=== PATIENT | female | born 1990 | race Caucasian/White ===

== ENCOUNTER → 2019-08-11 10:48 | Outpatient (BNVA) | payer OTHER, SELFPAY | PROVIDERS: Family Provider Family Medicine; PCP Family Medicine; Visit Provider Nurse Practitioner Family | DX: J02.9 Acute pharyngitis, unspecified (principal) | CPT/HCPCS: 87071; 87880 ==

== ENCOUNTER → 2020-02-21 10:42 | Outpatient (BNVA) | payer OTHER, SELFPAY | PROVIDERS: Family Provider Family Medicine; PCP Family Medicine; Visit Provider Family Medicine | DX: Z20.822 Contact with and (suspected) exposure to COVID-19 (principal) | CPT/HCPCS: 87635 ==

== ENCOUNTER 2020-02-23 02:02 | Emergency (ER) | payer OTHER, SELFPAY ==
[2020-02-23 02:08] VITALS: BP 149/95; PULSE 105; RESP 19; TEMP 36.8; O2SAT 98; BMI 49.2
[2020-02-23 02:11] VITALS: BP 153/103; PULSE 99; RESP 20; O2SAT 99
--- NOTE | 2020-02-23 02:26 | W.ED.COVID ---
HPI - COVID General: Chief Complaint: COVID symptoms Stated Complaint: Covid symptoms/waiting for covid results/COVID WR Time Seen by Provider: 02/23/20 02:14 Triage information: Has fever, cough or shortness of breath. Exposure to COVID + person last 14 days History of Present Illness: HPI Narrative: Patient is a 29-year-old female comes to the ED with upper respiratory symptoms. All her symptoms started on Tuesday. She has a productive cough with some clear sputum. She is also complaining of having a sore throat and nasal congestion. She has a headache as well. She says that she was tested for COVID-19 on , February 20 and it was negative. She comes to the ED tonight because her cough and sore throat have been progressing. She also feels like she is having some shortness of breath. Denies any fever, chills, chest pain, palpitations, abdominal pain, vomiting, bladder or bowel symptoms. Denies any history of blood clots or DVTs. COVID 19 common symptoms: positive productive cough, headache(s), throat pain, nasal congestion and nausea; negative fever(s), chills, non-productive cough, dyspnea, fatigue, vomiting or diarrhea COVID 19 other sytmptoms: negative chest pain COVID Results: Nasal/Oral Coronavirus 2019 PCR Not detected 02/21/20 10:42 02/21/20 Review of Systems Const: Denies: fever(s), chills or fatigue Eyes: Denies: change in vision or eye discomfort ENMT: Reports: throat pain, nasal discharge and nasal congestion; Denies: odynophagia Card: Denies: chest pain, palpitations, edema, swelling of feet/ankles, dyspnea on exertion or orthopnea Resp: Reports: productive cough and change in phlegm color (clear); Denies: dyspnea or non-productive cough GI: Reports: nausea; Denies: abdominal pain, vomiting, diarrhea, constipation or hematochezia : Denies: flank pain, dysuria or hematuria Musc: Denies: neck pain, back pain or extremity swelling Skin/Breast: Denies: rash or new lesions Neuro: Reports: headache(s); Denies: numbness in extremities or weakness in extremities PFS ED PFSH: Medical History Morbid obesity Surgical History History of section, low transverse (12/24/12) Performed by Dr. Garay at [facility] in [place], [place]. History of hysteroscopy (05/16/18) with IUD removal. Performed by Dr. Garay at [facility] in [place], [place]. History of myringotomy with tube placement Family History Father Hypertension Hypercholesteremia Mother Thyroid disease removed Social History Smoking and tobacco status: never smoked Alcohol intake: never Female Reproductive History: Date of last menstrual period: 02/09/20 Physical Exam Const: COMMON NORMALS: no acute distress, patient oriented x3 and alert GENERAL APPEARANCE: cooperative and comfortable NUTRITIONAL APPEARANCE: obese HENMT: COMMON NORMALS: normocephalic, EAC's normal and TM's normal bilaterally HEAD & SCALP: normocephalic EXTERNAL AUDITORY CANAL: EAC's normal TYMPANIC MEMBRANE: TM's normal bilaterally MOUTH: Normal oral and palatal mucosa present THROAT: uvula midline and posterior oropharynx abnormal erythema; no exudates Eye: COMMON NORMALS: Equal, round and reactive pupils present PUPIL: Yes Equal, round and reactive pupils present Neck/C-Spine: COMMON NORMALS: supple GENERAL: Yes normal visual inspection Resp: COMMON NORMALS: normal respiratory effort, No retractions, No use of accessory muscles and clear to auscultation bilaterally EFFORT & INSPECTION: Yes able to speak in complete sentences, No tachypneic, No respiratory distress and No labored AUSCULTATION: clear to auscultation bilaterally Cardio: COMMON NORMALS: regular rate, regular rhythm, S1 normal heart sound present, S2 normal heart sound present, No gallops present (Cardio), No clicks present (Cardio), No murmurs present (Cardio) and Peripheral pulses 2+ throughout RATE: regular rate RHYTHM: regular rhythm HEART SOUNDS: S1 normal heart sound present and S2 normal heart sound present PERIPHERAL PULSES: Peripheral pulses 2+ throughout GI: COMMON NORMALS: Normal to inspection, nondistended, normoactive bowel sounds present, Soft to palpation, non-tender and no masses PALPATION: Yes Soft to palpation : COMMON NORMALS: Yes no CVA tenderness BLADDER/KIDNEY EXAM: Yes no CVA tenderness Back/Pelvis: COMMON NORMALS: no CVA tenderness Extremity: COMMON NORMALS: normal to inspection and no pedal edema Neuro: COMMON NORMALS: patient oriented x3 and moves all extremities SENSORIUM/ORIENTATION: Yes alert Skin: GENERAL SKIN EXAM: dry skin Course Vital Signs: Vital signs: Vital Signs Temperature 98.2 F 02/23/20 02:08 Pulse Rate 99 02/23/20 02:11 Respiratory Rate 20 H 02/23/20 02:11 Blood Pressure 153/103 02/23/20 02:11 Pulse Oximetry 99 02/23/20 02:36 MDM - COVID MDM Narrative: Medical decision making narrative: Patient is a 29-year-old female comes to the ED with upper respiratory symptoms. She has a productive cough, sore throat, headache and nasal congestion. She was tested for COVID-19 on February 20 and it was negative. Physical exam was unremarkable and patient's lungs were clear to auscultation bilaterally. Strep negative. Chest x-ray showed no acute findings. Patient was diagnosed with bronchitis and upper respiratory viral pharyngitis. She was discharged with a prescription for azithromycin and Medrol Dosepak. Return to ED precautions given. Follow-up with PCP in 7 to 10 days for reevaluation. Patient understood and agree with plan. Lab Data: Attestation: I reviewed the patient's lab results. Labs: Lab Results 02/23/20 Range/Units 02:36 Group A Strep Rapi d Negative (Negative) Imaging Data: CXR: Attestation: I personally reviewed and interpreted this imaging study as follows: Radiologist's impression: [address] [address] XRay Report Signed Patient: Gisele Marrufo Unit #: [id number] : 1990 Age/Sex: 29 / F ADM Date: 02/23/20 Loc: ER Room/Bed: Attending Dr: Ordering Provider/Ordering MD: Chavez Barron Date of Service: 02/23/20 Procedure(s): XR chest 1V portable [id number] Accession Number(s): [id number] Report Number: [id number] PROCEDURE INFORMATION: Exam: XR Chest, 1 View Exam date and time: 02/23/2020 2:26 AM Age: 29 years old Clinical indication: Cough and shortness of breath; Patient HX: Cough with SOB. Negative covid test. TECHNIQUE: Imaging protocol: XR of the chest Views: 1 view. COMPARISON: No relevant prior studies available. FINDINGS: Lungs: Unremarkable. No consolidation. Pleural space: Unremarkable. No pleural effusion. No pneumothorax. Heart/Mediastinum: Unremarkable. No cardiomegaly. Bones/joints: Unremarkable. XR/XR chest 1V portable [id number] IMPRESSION: No acute findings. Dictated By: Kimberly Lozoya Signed By: Kimberly Lozoya Signed Date/Time: 02/23/20319 DD/ 8 COVID Results: Nasal/Oral Coronavirus 2019 PCR Not detected 02/21/20 10:42 02/21/20 Discharge Plan Discharge Patient Disposition: Home Clinical Impression: Bronchitis Upper respiratory infection Qualifiers: URI type: acute pharyngitis Pharyngitis/tonsillitis etiology: unspecified etiology Qualified Code(s): J02.9 - Acute pharyngitis, unspecified Condition: Stable Prescriptions: New azithromycin 250 mg tablet See Rx Instructions .ROUTE .COMPLEX Qty: 6 RF: 0 Medrol (Max) 4 mg tablets,dose pack See Rx Instructions .ROUTE .COMPLEX Qty: 21 RF: 0 No Action ferrous sulfate 325 mg (65 mg iron) tablet,delayed release (DR/EC) 325 mg PO BID RF: 0 etonogestrel-ethinyl estradiol [NuvaRing] 0.12-0.015 mg/24 hr ring 1 vag ring VAGINAL .COMPLEX Qty: 1 RF: 12 citalopram 20 mg tablet 20 mg PO DAILY Qty: 30 RF: 1 Discharge Orders: Discharge ED (Routine); Ordered 02/23/20 Ordered By: Chavez Barron Referrals: Chiquis Bess MD [Primary Care Provider] - Discharge Diet: Regular Discharge Activity: Resume usual activity Patient Instructions: Upper Respiratory Infection (ED), Acute Bronchitis (ED) Activity Restrictions/Additional Instructions: Follow-up with medical provider as directed in 7 to 10 days for reevaluation. Take medications as prescribed. Return to the ER or your medical provider if condition worsens. Please read and understand discharge instructions. If any questions, please ask. Coding Level of Care Code ED Paint Prep Technician for Chg Fwd Exam Comprehensive
[2020-02-23] MEDS: acetaminophen 500 mg Tablet 1000 MG PO (02:30)
[2020-02-23 02:36] VITALS: O2SAT 99
--- NOTE | 2020-02-23 03:15 | PC.NURSE ---
waiting for results.
[2020-02-23 03:21] LABS: Rapid Strep A Test Negative (Negative)
[2020-02-23 03:43] VITALS: BP 132/89; PULSE 87; RESP 21; O2SAT 99
--- NOTE | 2020-02-23 03:44 | PC.NURSE ---
Pt discharge home with prescription and discharge instructions
[2020-02-23 04:08] VITALS: BP 126/83; PULSE 97; RESP 20; O2SAT 98
== END 2020-02-23 04:09 | disposition home or self-care (01) ==
PROVIDERS: Emergency Provider Physician Assistant; PCP Family Medicine
DX: J40 Bronchitis, not specified as acute or chronic (principal); J02.9 Acute pharyngitis, unspecified
CPT/HCPCS: 12345; 71045; 87081; 87880; 96372; 99281; 99283; J2930

== ENCOUNTER → 2020-05-27 11:54 | Outpatient (BNVA) | payer OTHER, SELFPAY | PROVIDERS: PCP Family Medicine; Visit Provider Family Medicine | DX: Z20.822 Contact with and (suspected) exposure to COVID-19 (principal) | CPT/HCPCS: 87635 ==

== ENCOUNTER 2020-07-29 10:00 | Outpatient (CLI) | payer SELFPAY ==
[2020-07-29 10:58] LABS: HF Add Manual Diff No
[2020-07-29 11:08] LABS: Basophils # 0.1 10^3/uL (0.0-0.1); Basophils % 1.2 %; Eosinophils # 0.1 10^3/uL (0.0-0.8); Eosinophils % 1.4 %; Hematocrit 43.5 % (37.0-47.0); Hemoglobin 13.6 g/dL (11.5-15.3); Lymphocytes # 1.6 10^3/uL (0.8-4.8); Lymphocytes % 27.2 %; Mean Corpuscular HGB Conc 31.3 g/dL (30.0-36.0); Mean Corpuscular Hemoglobin 27.1 pg (28.0-34.0); Mean Corpuscular Volume 86.8 fL (81-99); Mean Platelet Volume 10.8 fL (7.4-10.4); Monocytes # 0.5 10^3/uL (0.2-0.9); Monocytes % 9.5 %; Neutrophils # 3.45 10^3/uL (1.8-7.7); Neutrophils % 60.5 %; Nucleated Red Blood Cells % 0 %; Platelet Count 393 10^3/cmm (130-400); Red Blood Count 5.01 10^6/uL (4.1-5.3); White Blood Count 5.7 10^3/uL (4.0-10.0)
[2020-07-29 11:42] LABS: Alanine Aminotransferase 33 U/L (0-33); Albumin Level 4.1 g/dL (3.5-5.2); Alkaline Phosphatase 78 IU/L (35-105); Anion Gap 13.8 (5-19); Aspartate Amino Transferase 22 U/L (0-32); Blood Urea Nitrogen 8 mg/dL (6-20); Carbon Dioxide 26 mmol/L (22-29); Chloride 104 mmol/L (98-107); Chol HDL Ratio 2.94 mg/dL (0.0-4.40); Cholesterol 156 mg/dL (0-200); Globulin 2.5 g/dL (1.3-4.6); Glomerular Filtration Rate 116.6 mL/min (90-130); Glucose 93 mg/dL (65-115); HDL Cholesterol 53 mg/dL (60-100); LDL Cholesterol Calculated 84 mg/dL (50-129); LDL HDL Ratio 1.58 RATIO (0.00-3.22); Osmolality Calculated 288 mOsm/kg (285-295); Potassium 3.8 mmol/L (3.5-5.1); Sodium 140 mmol/L (136-145); Thyroid Stimulating Hormone 0.74 uIU/mL (0.27-4.20); Total Bilirubin 0.3 mg/dL (0.15-1.2); Total Protein 6.6 g/dL (6.6-8.7); Triglycerides 93 mg/dL (0-150)
[2020-07-29 11:57] LABS: Estmated Average Glucose 103; Hemoglobin A1C 5.2 % (4.0-6.0)
[2020-07-29 12:17] LABS: 25 Hydroxy Vitamin D 45 ng/mL (30-100)
== END 2020-07-29 10:01 | disposition home or self-care (01) ==
PROVIDERS: PCP Family Medicine; Visit Provider Dermatology
DX: Z13.9 Encounter for screening, unspecified (principal)
CPT/HCPCS: 36415

== ENCOUNTER → 2020-08-08 09:07 | Outpatient (BNVA) | payer OTHER, SELFPAY | PROVIDERS: PCP Family Medicine; Visit Provider Obstetrics & Gynecology | DX: Z12.4 Encounter for screening for malignant neoplasm of cervix (principal); Z78.9 Other specified health status | CPT/HCPCS: 88175 ==

== ENCOUNTER → 2020-08-23 11:44 | Outpatient (BNVA) | payer OTHER, SELFPAY | PROVIDERS: PCP Family Medicine; Visit Provider Nurse Practitioner | DX: Z20.822 Contact with and (suspected) exposure to COVID-19 (principal) | CPT/HCPCS: 87635 ==

== ENCOUNTER 2020-08-29 21:30 | Emergency (ER) | payer OTHER, SELFPAY ==
[2020-08-29 21:51] VITALS: BP 102/69; PULSE 78; RESP 20; TEMP 37; O2SAT 98; BMI 51.6
--- NOTE | 2020-08-29 22:16 | ED_ITS ---
HPI - General Adult General: Chief complaint: General Medical Stated complaint: NOT ABLE TO GO TO URINATE/COVID + Time Seen by Provider: 08/29/20 22:05 Source: patient Mode of arrival: ambulatory Limitations: no limitations History of Present Illness: HPI narrative: 30-year-old female who diagnosed with Covid 1 week ago. States that she has been feeling better but today she st arted to have difficulty time urinating. States she has had some diarrhea and feels like she may be dehydrated. States she was the bathroom she is only able to urinate a little bit and feels like she is not urinating much. She denies any painful urination and denies any abdominal pain. She had no vomiting. Denies any worsening improving factors. Associated symptoms: Deny chest pain, dyspnea, headache(s), nausea, rash or vomiting Review of Systems Const: Denies: fever(s), chills, body aches or change in appetite Eyes: Denies: blurry vision or eye discomfort ENMT: Denies: throat pain or dental pain Card: Denies: chest pain Resp: Denies: dyspnea GI: Denies: abdominal pain, nausea, vomiting or diarrhea : Reports: difficulty voiding Musc: Denies: neck pain or back pain Skin/Breast: Denies: rash Neuro: Denies: headache(s) Psych: Denies: depression Diomedes/Lymph: Denies: easy bruising All/Imm: Denies: urticaria PFSH ED PFSH: Medical History (Updated 08/29/20 @ 23:53 by Karen Nielson MD) Morbid obesity Surgical History History of section, low transverse (12/24/12) Performed by Dr. Garay at [facility] in [place], [place]. History of hysteroscopy (05/16/18) with IUD removal. Performed by Dr. Garay at [facility] in [place], [place]. History of myringotomy with tube placement Family History Father Hypertension Hypercholesteremia Mother Thyroid disease removed Social History Smoking and tobacco status: never smoked Alcohol intake: never Female Reproductive History: Date of last menstrual period: 02/09/20 Physical Exam Const: COMMON NORMALS: no acute distress, patient oriented x3 and healthy appearing HENMT: COMMON NORMALS: normocephalic and atraumatic HEAD & SCALP: normocephalic and atraumatic Eye: COMMON NORMALS: Equal, round and reactive pupils present and EOMs intact bilaterally PUPIL: Yes Equal, round and reactive pupils present Neck/C-Spine: COMMON NORMALS: full ROM and supple Chest: COMMONS NORMALS: normal inspection of the chest and normal palpation of entire chest wall Resp: COMMON NORMALS: normal respiratory effort, No retractions, No use of accessory muscles and clear to auscultation bilaterally AUSCULTATION: clear to auscultation bilaterally Cardio: COMMON NORMALS: regular rate, regular rhythm and No murmurs present (Cardio) RATE: regular rate RHYTHM: regular rhythm GI: COMMON NORMALS: Normal to inspection, nondistended, normoactive bowel sounds present, Soft to palpation, non-tender and no masses PALPATION: Yes Soft to palpation Extremity: COMMON NORMALS: normal to inspection and full ROM Neuro: COMMON NORMALS: patient oriented x3, moves all extremities and no focal motor deficits Psych: COMMON NORMALS: mental status grossly normal, Normal thought process present and cooperative THOUGHT PROCESS: Normal thought process present Skin: COMMON NORMALS: no rashes or lesions noted and no wounds GENERAL SKIN EXAM: no rashes or lesions noted Course Vital Signs: Vital signs: Vital Signs Temperature 98.6 F 08/29/20 21:51 Pulse Rate 73 08/29/20 22:46 Respiratory Rate 18 08/29/20 22:46 Blood Pressure 129/86 08/29/20 22:46 Pulse Oximetry 98 08/29/20 22:46 MDM - General Adult MDM Narrative: Medical decision making narrative: Patient presents here with acute cystitis. She has no signs of kidney infection. Her blood work here is normal besides urinalysis. Patient prescribed Keflex and is stable for discharge. She is to follow-up with PCP and return if worsening. She understands agrees to plan. Lab Data: Labs: Lab Results 08/29/20 08/29/20 08/29/20 Range/Units 22:30 22:30 22:30 WBC 4.1 (4.0-10.0) 10^3/ uL RBC 5.47 H (4.1-5.3) 10^6/u L Hgb 15.2 (11.5-15.3) g/dL Hct 48.3 H (37.0-47.0) % MCV 88.3 (81-99) fL MCH 27.8 L (28.0-34.0) pg MCHC 31.5 (30.0-36.0) g/dL RDW 14.9 (12.1-15.1) % Plt Count 258 (130-400) 10^3/c mm MPV 11.3 H (7.4-10.4) fL Neut % (Auto) 38.2 % Lymph % (Auto) 47.8 % [place] % (Auto) 12.1 % Eos % (Auto) 0.7 % Baso % (Auto) 1.0 % Neut # (Auto) 1.55 L (1.8-7.7) 10^3/u L Lymph # (Auto) 1.9 (0.8-4.8) 10^3/u L [place] # (Auto) 0.5 (0.2-0.9) 10^3/u L Eos # (Auto) 0.0 (0.0-0.8) 10^3/u L Baso # (Auto) 0.0 (0.0-0.1) 10^3/u L Nucleated RBC % (a uto) 0 % Nucleated RBCs # 0.0 /100WBC Sodium 140 (136-145) mmol/L Potassium 3.7 (3.5-5.1) mmol/L Chloride 106 (98-107) mmol/L Carbon Dioxide 22 (22-29) mmol/L Anion Gap 15.7 (5-19) BUN 9 (6-20) mg/dL Creatinine 0.6 (0.5-0.9) mg/dL GFR Calculation 115.9 (90-130) mL/min Glucose 87 (65-115) mg/dL Calculated Osmolal ity 288 (285-295) mOsm/k g Calcium 8.6 (8.5-10.5) mg/dL Total Bilirubin 0.4 (0.15-1.2) mg/dL AST 23 (0-32) U/L ALT 55 H (0-33) U/L Alkaline Phosphata se 104 (35-105) IU/L Total Protein 6.8 (6.6-8.7) g/dL Albumin 4.1 (3.5-5.2) g/dL Globulin 2.7 (1.3-4.6) g/dL Urine Color Yellow (Yellow) Urine Appearance Hazy A (CLEAR) Urine pH 7 (5-7) Ur Specific Gravit y 1.010 (1.005-1.030) Urine Protein Trace (Negative) Urine Glucose (UA) Norm (Normal) Urine Ketones Negative (Negative) Urine Blood 3+ H (Negative) Urine Nitrate Positive H (Negative) Urine Bilirubin 1+ H (Negative) Urine Urobilinogen 4 H (Negative) mg/dL Ur Leukocyte Astrid ase 1+ H (Negative) Urine RBC 25-40 H (0-2) /hpf Urine WBC 15-25 H (0-5) /hpf Ur Squamous Epith Cells 0-4 H (0-5) /hpf Amorphous Sediment Not Reportable Urine Bacteria 4+ H (NONE) /hpf Discharge Plan Discharge Patient Disposition: Home Clinical Impression: Acute cystitis Qualifiers: Hematuria presence: without hematuria Qualified Code(s): N30.00 - Acute cystitis without hematuria Condition: Stable Prescriptions: New cephalexin 500 mg capsule 500 mg PO TID 7 Days Qty: 21 RF: 0 No Action ferrous sulfate 325 mg (65 mg iron) tablet,delayed release (DR/EC) 325 mg PO DAILY RF: 0 etonogestrel-ethinyl estradiol [NuvaRing] 0.12-0.015 mg/24 hr ring 1 vag ring VAGINAL .COMPLEX Qty: 3 RF: 6 hydrocodone-acetaminophen 10-325 mg tablet 1 tab PO DAILY PRN (Reason: pain) 30 Days Qty: 30 RF: 0 Discharge Orders: Discharge ED (Routine); Ordered 08/29/20 Ordered By: Karen Nielson Referrals: Chiquis Bess MD [Primary Care Provider] - 1-3 days Discharge Diet: Advance as tolerated Discharge Activity: Resume usual activity Patient Instructions: Urinary Tract Infection in Women (ED) Coding Level of Care Code ED Lift Operator for Chg Fwd Exam Comprehensive
[2020-08-29] MEDS: sodium chloride 0.9% 1,000 ML 999 ML IV ×2 (22:32→23:06)
[2020-08-29 22:46] VITALS: BP 129/86; PULSE 73; RESP 18; O2SAT 98
[2020-08-29 22:46] LABS: Eosinophils % 0.7 %; Hematocrit 48.3 % (37.0-47.0); Hemoglobin 15.2 g/dL (11.5-15.3); Lymphocytes # 1.9 10^3/uL (0.8-4.8); Lymphocytes % 47.8 %; Mean Corpuscular HGB Conc 31.5 g/dL (30.0-36.0); Mean Corpuscular Hemoglobin 27.8 pg (28.0-34.0); Mean Corpuscular Volume 88.3 fL (81-99); Mean Platelet Volume 11.3 fL (7.4-10.4); Monocytes # 0.5 10^3/uL (0.2-0.9); Monocytes % 12.1 %; Neutrophils # 1.55 10^3/uL (1.8-7.7); Neutrophils % 38.2 %; Nucleated Red Blood Cells % 0 %; Platelet Count 258 10^3/cmm (130-400); Red Blood Count 5.47 10^6/uL (4.1-5.3); Red Cell Distribution Width 14.9 % (12.1-15.1); White Blood Count 4.1 10^3/uL (4.0-10.0)
--- NOTE | 2020-08-29 22:56 | PC.NURSE ---
patient urinated prior to bladder scan approximately 40 ml. her scan about 20 minutes later showed about 35 ml of urine in the bladder
[2020-08-29 23:33] LABS: Bilirubin Urine 1+ (Negative); Blood Urine 3+ (Negative); Glucose Urine UA Norm (Normal); Ketones Urine Negative (Negative); Nitrate Urine Positive (Negative); Protein Urine Trace (Negative); Urine Appearance Hazy (CLEAR); Urine Color Yellow (Yellow); pH Urine 7 (5-7)
[2020-08-29 23:34] LABS: Add Urine Microscopic? YES; Leukocyte Esterase Urine 1+ (Negative); Urobilinogen Urine 4 mg/dL (Negative)
[2020-08-29 23:44] LABS: Alanine Aminotransferase 55 U/L (0-33); Albumin Level 4.1 g/dL (3.5-5.2); Alkaline Phosphatase 104 IU/L (35-105); Anion Gap 15.7 (5-19); Aspartate Amino Transferase 23 U/L (0-32); Blood Urea Nitrogen 9 mg/dL (6-20); Calcium 8.6 mg/dL (8.5-10.5); Carbon Dioxide 22 mmol/L (22-29); Chloride 106 mmol/L (98-107); Globulin 2.7 g/dL (1.3-4.6); Glomerular Filtration Rate 115.9 mL/min (90-130); Glucose 87 mg/dL (65-115); Osmolality Calculated 288 mOsm/kg (285-295); Potassium 3.7 mmol/L (3.5-5.1); Sodium 140 mmol/L (136-145); Total Bilirubin 0.4 mg/dL (0.15-1.2); Total Protein 6.8 g/dL (6.6-8.7)
[2020-08-29 23:52] LABS: Add Urine Culture? Yes; Bacteria Urine 4+ /hpf; RBC Urine 25-40 /hpf (0-2); Squamous Epithelial Cell Urine 0-4 /hpf (0-5); WBC Urine 15-25 /hpf (0-5)
[2020-08-29] MEDS: cefTRIAXone 1,000 MG in sodium chloride 0.9% (plus) 50 ML 100 MG IV (23:55)
[2020-08-30 00:17] VITALS: BP 112/75; PULSE 91; RESP 18; O2SAT 100
== END 2020-08-30 00:17 | disposition home or self-care (01) ==
PROVIDERS: Emergency Provider Emergency Medicine; PCP Family Medicine
DX: N30.00 Acute cystitis without hematuria (principal); E66.01 Morbid (severe) obesity due to excess calories; Z68.43 Body mass index [BMI] 50.0-59.9, adult
CPT/HCPCS: 51798; 80053; 81001; 85025; 87077; 87086; 87186; 96361; 96365; 99284; J0696; J7030

== ENCOUNTER → 2021-02-03 16:41 | Outpatient (BNVA) | payer OTHER, SELFPAY | PROVIDERS: PCP Family Medicine; Visit Provider Registered Nurse Neonatal Intensive Care | DX: M79.671 Pain in right foot (principal) | CPT/HCPCS: 73630 ==

== ENCOUNTER → 2022-09-21 08:13 | Outpatient (BNVA) | payer OTHER, SELFPAY | PROVIDERS: PCP Family Medicine; Visit Provider Obstetrics & Gynecology | DX: R10.2 Pelvic and perineal pain (principal) | CPT/HCPCS: 76830 ==

== ENCOUNTER → 2022-10-19 12:27 | Outpatient (BNVA) | payer OTHER, SELFPAY | PROVIDERS: PCP Family Medicine; Visit Provider Obstetrics & Gynecology | DX: R30.0 Dysuria (principal); R82.90 Unspecified abnormal findings in urine | CPT/HCPCS: 84315; 87077; 87086; 87184 ==

== ENCOUNTER 2023-02-10 05:31 | Day surgery (SDC) | payer OTHER, SELFPAY ==
--- NOTE | 2023-02-09 19:17 | W.PM.OPSFHP ---
Same Day Surgery H&P Indication for Procedure/HPI DATE OF PROCEDURE: February 10, 2023 CHIEF COMPLAINT/INDICATIONFOR SURGICAL PROCEDURE: desires permanent sterilization PREOP DIAGNOSIS: desires permanent sterilization PLANNED PROCEDURE: Operation Date: 02/10/23 07:00 Proposed Procedures p Laparoscopic bilateral partial salpingectomy 31429, Z30.2(Bilateral) - Flako Ferrell MD 32 y.o. desires permanent sterilization now scheduled for laparoscopic bilateral partial salpingectomy Medications/Allergies* Allergies/Adverse Reactions Allergy/AdvReac Type Severity Reaction Status Date / Time No Known Allergies Allergy Verified 02/09/23 11:31 Pertinent History/Comorbid Conditions* Medical History (Updated 11/09/22 @ 21:08 by Flako Ferrell MD) Insomnia Migraine Morbid obesity Surgical History (Updated 08/16/21 @ 13:42 by Elsi Still MD) History of gastric bypass 05/2020 History of hysteroscopy (05/16/18) with IUD removal. Performed by Dr. Garay at [facility] [place] in [place], [place]. History of section, low transverse (12/24/12) Performed by Dr. Garay at [facility] [place] in [place], [place]. History of myringotomy with tube placement Family History (Updated 07/04/19 @ 08:17 by Anais Reyes LPN) Hypercholesteremia Father Hypertension Father Thyroid disease Mother removed Social History Smoking and tobacco/nicotine status: current every day tobacco/nicotine user Alcohol intake: never Substance/Drug Use: never Other Historical Information: PSHx: x one Gastric bypass - Hysteroscopic IUD removal Pertinent Exam Findings alert, oriented x 3, clear to auscultation bilaterally and regular rate & rhythm Pertinent Data Pap 7-2-21 NILM, negative HPV Pelvic sono 09-21-22 normal uterus and ovaries Recommendations Surgery/Procedure today Coding Level of Care Code Acute Code for Chg Fwd Time Spent (min) 20
[2023-02-10] VITALS (9 sets, daily range): BP systolic 82–184; BP diastolic 66–86; PULSE 70–91; RESP 14–18; TEMP 36.2–36.3; O2SAT 97–100; BMI 43.0
[2023-02-10 06:34] LABS: OR HCG Qualitative Urine Negative (Negative)
[2023-02-10] MEDS: sodium chloride 0.9% 1,000 ML 30 ML IV (06:36)
--- NOTE | 2023-02-10 06:36 | W.PM.OPSUD ---
Surgery/Procedure H&P Update DATE OF PROCEDURE: February 10, 2023 DATE H&P PERFORMED: 02/09/23 H&P UPDATE INFORMATION: I have reviewed H&P completed within last 30 days, I have examined patient prior to procedure and No changes to prior documentation PREOP DIAGNOSIS: desires permanent sterilization PRIMARY INDICATION FOR PROCEDURE: desires permanent sterilization PLANNED PROCEDURE: Operation Date: 02/10/23 07:00 Proposed Procedures p Laparoscopic bilateral partial salpingectomy 03402, Z30.2(Bilateral) - Flako Ferrell MD
[2023-02-10] MEDS: fentaNYL 50 mcg/mL INJ 2mL IVP (09:07)
--- NOTE | 2023-02-10 09:14 | P.ANESASSM_ITS ---
Pre-Anesthetic Assessment Height/Weight: Height 1.7 m Weight 124.738 kg Temp Pulse Resp BP Pulse Ox O2 Del Method O2 Flow Rate 97.4 F L 78 15 114/83 99 Room Air 6 02/10/23 08:57 02/10/23 09:12 02/10/23 09:12 02/10/23 09:12 02/10/23 09:12 02/10/23 09:12 02/10/23 09:02 Preop Diagnosis: desires permanent sterilization Operation Date: 02/10/23 07:00 Proposed Procedures p Laparoscopic bilateral partial salpingectomy 25694, Z30.2(Bilateral) - Flako Ferrell MD Familial anesthetic complications: Pseudocholinesterase def Was Beta Jeff taken within 24 hours: N/A Was Clonidine taken within 24 hours: N/A Last intake: Intake Last Liquid Date 02/09/23 Last Liquid Time 22:30 Last Solid Date 02/09/23 Last Solid Time 22:00 Social No alcohol and No tobacco Exam alert, oriented x 3, clear to auscultation bilaterally and regular rate & rhythm Airway Submandibular: within normal limits Cervical ROM: within normal limits Mallampati: Class II Dentition: full Metabolic Morbid Obesity Neuropsych Anxiety and Depression Anesthetic Plan ASA status: 2 Anesthesia: General Medications/Allergies Home Medications Medication Instructions Recorded Confirmed Last Taken Type etonogestrel 0.12 mg-ethinyl 1 vag ring vaginal .COMPLEX #3 ea 09/06/22 02/02/23 02/07/23 Rx estradiol 0.015 mg/24 hr vaginal ring (NuvaRing) diclofenac sodium 75 mg 75 mg PO BID PRN pain #30 tabs 12/27/22 02/02/23 01/31/23 Rx tablet,delayed release alprazolam 0.5 mg tablet 0.5 mg PO BEDTIME sleep/anxiety 12/29/22 02/02/23 02/07/23 Rx #30 tabs hydrocodone 10 mg-acetaminophen 1 tab PO DAILY PRN pain 30 days 01/07/23 02/02/23 02/07/23 Rx 325 mg tablet #30 tabs phentermine 37.5 mg tablet 37.5 mg PO DAILY #30 tabs 02/01/23 02/02/23 02/01/23 Rx Allergies Allergy/AdvReac Type Severity Reaction Status Date / Time No Known Allergies Allergy Verified 02/09/23 11:31 Current Medications Generic Name Dose Route Start Last Admin Trade Name Armani PRN Reason Stop Dose Admin Fentanyl 50 mcg 02/10/23 09:08 02/10/23 09:07 Fentanyl 50 Mcg/Ml Inj 2ml IVP 02/11/23 09:08 50 mcg Q5M PRN Administration Pain level 1-5 PACU Phase I Sodium Chloride 1,000 mls @ 30 mls/hr 02/10/23 06:00 02/10/23 06:36 Sodium Chloride 0.9% IV 02/11/23 05:59 30 mls/hr .Q24H ESPINOZA Administration PFSH Anesthesia Medical History (Updated 11/09/22 @ 21:08 by Flako Ferrell MD) Insomnia Migraine Morbid obesity Surgical History History of gastric bypass 05/2020 History of hysteroscopy (05/16/18) with IUD removal. [place]. Gar[place] [facility] [place], [place]. History of section, low transverse (12/24/12) Performed by Dr. Garay at [facility] [place], [place] History of myringotomy with tube placement Family History Father Hypertension Hypercholesteremia Mother Thyroid disease removed Social History Smoking and tobacco/nicotine status: current every day tobacco/nicotine user Alcohol intake: never Substance/Drug Use: never Female Reproductive History Date of last menstrual period: 09/20/22 Data Anesthesia Cardiac Studies: Holter Monitor 11/12/19
--- NOTE | 2023-02-10 13:17 | ANE.PACU2 ---
Inpatient post-anesthesia follow up: Airway intact: Yes Vital signs: Temperature 97.2 F Pulse Rate 79 Respiratory Rate 16 Blood Pressure 113/82 Pulse Oximetry 99 Oxygen Delivery Me thod Room Air Oxygen Flow Rate 6 Fraction of Inspir ed Oxygen Hydration adequate: Yes Nausea and vomiting: No Pain level: 2 Mental status: Baseline
--- NOTE | 2023-02-10 23:07 | P.OP_ITS ---
Operative Report Date of procedure: February 10, 2023 Pre-op diagnosis: desires permanent sterilization Post-op diagnosis: same Post-op findings: normal uterus, tubes, and ovaries left-sided filmy adhesions between a segment of bowel and pelvic sidewall, likely from previous surgery Procedure done: laparoscopic bilateral partial salpingectomy Implants: none Specimens removed/disposition: bilateral fallopian tube segments Surgeon: Flako Ferrell MD Anesthesia: General Estimated blood loss (mL): 0 Complications: none Condition: stable Disposition: PACU Brief History: 32 y.o. desires permanent sterilization Procedure: Informed consent was obtained. The patient was taken to the OR and placed on the table. General endotracheal anesthesia was induced. The patient was placed in dorsolithotomy position. The abdomen and perineum were then prepped and draped in the usual fashion. A 5 mm subumbilical skin incision was made. A 5 mm trocar with sheath was then inserted into the peritoneal cavity under direct visualization with the laparoscope. After confirming intraperitoneal position, pneumoperitoneum was achieved. Two separate 5 mm incisions were made in the right and left mid- quadrants. 5 mm trocars with sheaths were then inserted into the peritoneal cavity under direct visualization with the laparoscope. The right fallopian tube was then identified to its fimbrial end. Starting at the fimbrial end, the mesosalpinx was then coagulated and cut using the Ligasure device. A 3-4 cm portion of the right fallopian tube was excised and removed via one of the ports. This was sent to pathology. There was no bleeding seen. Similarly, the left fallopian tube was identified to its fimbrial end. A 3-4 cm portion of the left fallopian tube was excised and removed, sent to pathology. There was no bleeding. All instruments were then removed from the peritoneal cavity after the pneumoperitoneum was allowed to escape. The skin incisions were closed using 3- O chromic in subcuticular fashion. Dermabond was applied. The patient was then placed supine and awakened, taken to the PACU in good condition. Postoperative condition: good EBL: 0 cc Complications: none Sponge, needles, and instrument counts were correct x two
== END 2023-02-10 10:10 | disposition home or self-care (01) ==
PROVIDERS: PCP Family Medicine; Visit Provider Obstetrics & Gynecology
PROC: (CPT 58661; principal; 2023-02-10 07:00)
DX: Z30.2 Encounter for sterilization (principal); E66.01 Morbid (severe) obesity due to excess calories; Z68.41 Body mass index [BMI] 40.0-44.9, adult; F17.210 Nicotine dependence, cigarettes, uncomplicated
CPT/HCPCS: 58661; 81025; 84703; 88302; A4216; J1100; J1885; J2405; J2704; J2710; J3010; J3490; J7030

== ENCOUNTER → 2023-09-12 15:08 | Outpatient (BNVA) | payer OTHER, SELFPAY | PROVIDERS: PCP Family Medicine; Visit Provider Obstetrics & Gynecology | DX: Z01.419 Encounter for gynecological examination (general) (routine) without abnormal findings (principal); Z00.00 Encounter for general adult medical examination without abnormal findings | CPT/HCPCS: 80053; 80061; 84443; 85025; 87624 ==